=== PATIENT | male | born 1975 | race Caucasian/White ===

== ENCOUNTER 2024-01-26 19:20 | Inpatient (IN) | payer SELFPAY ==
[~2024-01-26] VITALS: Ht 182.8 cm; Wt 107.5 kg
[~2024-01-26 19:20] MED LIST: ALBUTEROL0.09 MG/A2 IH; BACTRIM DS 8001 TA1 PO; HYDROCODONE BIT1 T11 PO; KEFLEX500 MG PO; MOTRIN800 MG PO; NKHM; TOBRADEX 0.1%-0.5 ML OPH; TRAMADOL HCL50 MG PO; VIBRAMYCIN100 MG PO; VICODIN 5/500 505 MG PO
[2024-01-26 19:52] LABS: BASO # 0.1 10*3/uL (0.0-0.1); BASO % 0.6 % (0.0-1.0); EOS # 0.2 10*3/uL (0.0-0.4); EOS % 1.4 % (1.0-4.0); HEMATOCRIT 40.6 % (42.0-52.0); MEAN CELL VOLUME 96.2 fl (80.0-94.0); MEAN CORPUSCULAR HGB 29.6 pg (27.0-31.0); MEAN CORPUSCULAR HGB CONC 30.8 g/dl (33.0-37.0); MEAN PLATELET VOLUME 11.9 fl (9.6-12.3); MONO # 0.6 10*3/uL (0.1-1.0); MONO % 5.6 % (3.0-9.0); NEUT # 8.2 10*3/uL (2.3-7.9); NEUT % 72.9 % (47.0-73.0); PLATELET COUNT AUTOMATED 167 10*3/uL (130-400); RED BLOOD COUNT 4.22 10*6/uL (4.50-5.90); RED CELL DISTRI WIDTH 14.7 % (0-14.5); WHITE BLOOD COUNT 11.2 10*3/uL (4.8-10.8)
[2024-01-26 20:05] LABS: ACT PARTIAL THROMBO TIME 23.6 SECONDS (20.0-32.1)
[2024-01-26 20:13] LABS: BUN 18 mg/dl (9-23); CHLORIDE 109 mmol/L (98-107); LIPASE 58 U/L (12-53); POTASSIUM 4.5 mmol/L (3.4-5.1)
[2024-01-26] MEDS ORDERED: VAZALORE81 MG PO (20:25)
[2024-01-26] MEDS ORDERED: SODIUM CHLORIDE 0.9% 1,000 ML IV SCH (20:55)
[2024-01-26] MEDS ORDERED: AZITHROMYCIN 250 MG TAB PO ONE (20:55)
[2024-01-26] MEDS ORDERED: LORazepam 0.5 MG TAB PO ONE (20:55)
[2024-01-26] MEDS ORDERED: Ceftriaxone Sodium 1 GM/10 ML SYR IV ONE (20:55)
[2024-01-26] MEDS ORDERED: SODIUM CHLORIDE 0.9% 100 ML BAG IV ONE (21:55)
[2024-01-26] MEDS ORDERED: IOHEXOL 350 MG/ML 100 ML VIAL IV ONE ×2 (21:55→22:11)
[2024-01-26] MEDS ORDERED: SODIUM CHLORIDE 0.9% 100 ML IV ONE (22:12)
[2024-01-27] VITALS (8 sets, daily range): BP systolic 142–180; BP diastolic 88–135
[2024-01-27] MEDS ORDERED: ACETAMINOPHEN 325 MG TAB PO PRN (00:20)
[2024-01-27] MEDS ORDERED: Acetaminophen/Hydrocodone 5 MG/325 MG TABLET PO PRN (00:20)
[2024-01-27] MEDS ORDERED: MORPHINE Sulfate 2 MG/ML SYR IV PRN (00:20)
[2024-01-27] MEDS ORDERED: Ondansetron Hydrochloride 4 MG/2 ML VIAL IV PRN (00:20)
[2024-01-27] MEDS ORDERED: SODIUM CHLORIDE 0.9% 1,000 ML IV SCH (00:25)
[2024-01-27] MEDS ORDERED: Levalbuterol Hydrochloride 1.25 MG VIAL NEB PRN (00:30)
[2024-01-27] MEDS ORDERED: LORazepam 1 MG TAB PO ONE (00:30)
[2024-01-27] MEDS ORDERED: methylPREDNISolone sod succ 40 MG IV SCH (00:35)
[2024-01-27] MEDS ORDERED: methylPREDNISolone sod succ 40 MG VIAL IV SCH ×2 (00:35→18:00)
[2024-01-27] MEDS ORDERED: Nicotine 21 MG PATCH T SCH (00:40)
[2024-01-27] MEDS ORDERED: GUAIFENESIN 600 MG TAB ER PO SCH (00:45)
[2024-01-27] MEDS ORDERED: LORazepam 1 MG TAB PO PRN (01:10)
[2024-01-27] MEDS ORDERED: Metoprolol Tartrate 25 MG TAB PO SCH (02:10)
[2024-01-27] MEDS ORDERED: ASPIRIN, CHEWABLE 81 MG TAB PO SCH (02:10)
[2024-01-27] MEDS ORDERED: ATORVASTATIN CALCIUM 80 MG TAB PO SCH (02:10)
[2024-01-27 05:34] LABS: ALKALINE PHOSPHATASE 80 U/L (46-116); BUN 20 mg/dl (9-23); CHLORIDE 109 mmol/L (98-107); CHOLESTEROL 191 mg/dL (<200); LDL CHOLESTEROL 144 mg/dL (9-159); POTASSIUM 4.3 mmol/L (3.4-5.1); SGPT/ALT 308 U/L (5-49); TOTAL PROTEIN 6.5 gm/dL (6.0-8.0); TRIGLYCERIDES 102 mg/dl (<150)
[2024-01-27 06:21] LABS: BASO # 0.1 10*3/uL (0.0-0.1); BASO % 0.5 % (0.0-1.0); EOS # 0.1 10*3/uL (0.0-0.4); EOS % 0.5 % (1.0-4.0); HEMATOCRIT 41.3 % (42.0-52.0); MEAN CELL VOLUME 95.6 fl (80.0-94.0); MEAN CORPUSCULAR HGB 29.6 pg (27.0-31.0); MEAN PLATELET VOLUME 12.6 fl (9.6-12.3); MONO # 0.5 10*3/uL (0.1-1.0); MONO % 3.4 % (3.0-9.0); NEUT # 11.5 10*3/uL (2.3-7.9); NEUT % 86.8 % (47.0-73.0); PLATELET COUNT AUTOMATED 183 10*3/uL (130-400); RED BLOOD COUNT 4.32 10*6/uL (4.50-5.90); RED CELL DISTRI WIDTH 14.8 % (0-14.5); WHITE BLOOD COUNT 13.2 10*3/uL (4.8-10.8)
[2024-01-27 07:55] LABS: VITAMIN D, 25-HYDROXY 32.1 ng/mL (30-100)
[2024-01-27] MEDS ORDERED: Enoxaparin Sodium 40 MG/0.4 ML SYR SC SCH (10:00)
[2024-01-27] MEDS ORDERED: AZITHROMYCIN 250 MG TAB PO SCH (10:00)
[2024-01-27] MEDS ORDERED: FUROSEMIDE 20 MG/2 ML VIAL IV SCH ×2 (10:00→18:00)
[2024-01-27] MEDS ORDERED: Piperacillin Sodium/Tazobact 100 ML IV SCH (12:00)
[2024-01-27] MEDS ORDERED: hydrALAZINE hydrochloride 20 MG/ML VIAL IV PRN (13:40)
[2024-01-27] MEDS ORDERED: CARVEDILOL 12.5 MG TAB PO SCH (13:40)
[2024-01-27] MEDS ORDERED: VANCOMYCIN/WATER FOR INJ (PEG) 350 ML IV SCH (14:00)
[2024-01-27] MEDS ORDERED: Albuterol Sulfate 2.5 MG/3 ML VIAL NEB SCH (15:10)
[2024-01-27] MEDS ORDERED: HEPARIN SODIUM 250 ML IV SCH (15:45)
[2024-01-27 17:41] LABS: URINE AMPHETAMINES Negative (1000ng/ml); URINE BARBITURATES Negative (200ng/ml); URINE BENZODIAZEPINES Negative (200ng/ml); URINE CANNABINOIDS (THC) Negative (50ng/ml); URINE COCAINE Positive (300ng/ml); URINE METHADONE Negative (300ng/ml); URINE OPIATES Negative (300ng/ml); URINE PHENCYCLIDINE Negative (25ng/ml)
[2024-01-27] MEDS ORDERED: Ceftriaxone Sodium 1 GM in SYRINGE INFUSION 10 ML IV SCH (22:00)
[2024-01-28 03:54] VITALS: BP 146/95
[2024-01-28 04:48] LABS: BASO % 0.1 % (0.0-1.0); EOS # 0.1 10*3/uL (0.0-0.4); EOS % 0.5 % (1.0-4.0); HEMATOCRIT 37.7 % (42.0-52.0); MEAN CORPUSCULAR HGB 30.1 pg (27.0-31.0); MEAN CORPUSCULAR HGB CONC 33.2 g/dl (33.0-37.0); MEAN PLATELET VOLUME 12.6 fl (9.6-12.3); MONO # 0.9 10*3/uL (0.1-1.0); MONO % 4.4 % (3.0-9.0); NEUT # 17.7 10*3/uL (2.3-7.9); PLATELET COUNT AUTOMATED 186 10*3/uL (130-400); RED BLOOD COUNT 4.15 10*6/uL (4.50-5.90); RED CELL DISTRI WIDTH 14.4 % (0-14.5); WHITE BLOOD COUNT 19.9 10*3/uL (4.8-10.8)
[2024-01-28 04:53] LABS: MEAN CELL VOLUME 90.8 fl (80.0-94.0)
[2024-01-28] MEDS ORDERED: ATORVASTATIN CA80 M1 PO (04:58)
[2024-01-28] MEDS ORDERED: CARVEDILOL12.5 MG PO (05:00)
[2024-01-28] MEDS ORDERED: JARDIANCE10 MG PO (05:00)
[2024-01-28 05:05] LABS: ALKALINE PHOSPHATASE 70 U/L (46-116); BUN 21 mg/dl (9-23); CHLORIDE 105 mmol/L (98-107); POTASSIUM 3.9 mmol/L (3.4-5.1); SGPT/ALT 229 U/L (5-49); TOTAL PROTEIN 6.1 gm/dL (6.0-8.0)
[2024-01-28] MEDS ORDERED: EMPAGLIFLOZIN 10 MG TABLET PO SCH (10:00)
== END 2024-01-28 04:29 | disposition short-term general hospital (02) | DRG 871 ==
LOC: ED 19:20 → EDHOLD 23:51
PROVIDERS: Internal Medicine; Internal Medicine Critical Care Medicine; Student in an Organized Health Care Education/Training Program; ADMIT Student in an Organized Health Care Education/Training Program; ATTEND Student in an Organized Health Care Education/Training Program
DX: A41.9 Sepsis, unspecified organism (principal); I21.4 Non-ST elevation (NSTEMI) myocardial infarction; J69.0 Pneumonitis due to inhalation of food and vomit; I50.21 Acute systolic (congestive) heart failure; J90 Pleural effusion, not elsewhere classified; R04.2 Hemoptysis; D68.51 Activated protein C resistance; R65.20 Severe sepsis without septic shock; K81.9 Cholecystitis, unspecified; D53.9 Nutritional anemia, unspecified; F41.1 Generalized anxiety disorder; F17.210 Nicotine dependence, cigarettes, uncomplicated; F32.9 Major depressive disorder, single episode, unspecified; I27.20 Pulmonary hypertension, unspecified; F14.10 Cocaine abuse, uncomplicated; T40.5X5A Adverse effect of cocaine, initial encounter; I08.1 Rheumatic disorders of both mitral and tricuspid valves; R59.0 Localized enlarged lymph nodes; R73.9 Hyperglycemia, unspecified; Z71.6 Tobacco abuse counseling; Z82.5 Family history of asthma and other chronic lower respiratory diseases; Z79.2 Long term (current) use of antibiotics; Y92.89 Other specified places as the place of occurrence of the external cause

== ENCOUNTER 2024-07-31 13:19 | Emergency (ER) | payer OTHER ==
[~2024-07-31] VITALS: Ht 182.8 cm; Wt 97.1 kg
[~2024-07-31 13:19] MED LIST changes: +ALDACTONE25 MG PO; +ATORVASTATIN CA80 M1 PO; +CARVEDILOL12.5 MG PO; +CHEST CONGESTI400 MG PO; +DOXYCYCLINE HY100 M3 PO; +ENTRESTO 24 MG1 EACH PO; +ENTRESTO 49 MG1 EACH PO; +JARDIANCE10 MG PO; +LASIX40 MG PO; +LIPITOR40 MG PO; +MUCUS RELIEF E600 MG PO; +VAZALORE81 MG PO
[2024-07-31 14:15] LABS: POTASSIUM 4.1 mmol/L (3.4-5.1); TOTAL PROTEIN 7.3 gm/dL (6.0-8.0)
[2024-07-31 14:19] LABS: ACT PARTIAL THROMBO TIME 22.2 SECONDS (20.0-32.1)
[2024-07-31] MEDS ORDERED: RECOMBINANT IV ONE ×2 (14:20)
[2024-07-31] MEDS ORDERED: INFUSION IV ONE ×2 (14:20)
[2024-07-31] MEDS ORDERED: ALTEPLASE IV ONE ×2 (14:20)
[2024-07-31 14:22] LABS: MEAN CELL VOLUME 92.2 fl (80.0-94.0); MEAN CORPUSCULAR HGB 29.2 pg (27.0-31.0); MEAN CORPUSCULAR HGB CONC 31.7 g/dl (33.0-37.0); MEAN PLATELET VOLUME 13.5 fl (9.6-12.3); NUCLEATED RED BLOOD CELL 0.1 % (0.0-0.0); RED CELL DISTRI WIDTH 19.9 % (0-14.5); WHITE BLOOD COUNT 14.4 10*3/uL (4.8-10.8)
[2024-07-31 14:25] LABS: MANUAL DIFF REFLEX YES; PLATELET COUNT AUTOMATED 199 10*3/uL (130-400)
[2024-07-31 14:35] LABS: TOTAL CELLS COUNTED 100 #CELLS
[2024-07-31 14:37] LABS: PLATELET SUFFICIENCY NORMAL (NORMAL); POLYCHROMASIA SLIGHT
[2024-07-31] MEDS ORDERED: MORPHINE Sulfate 2 MG/ML SYR IV ONE (14:50)
[2024-07-31 15:36] LABS: BILIRUBIN Negative (Negative); BLOOD Negative (Negative); CLARITY Clear (Clear); COLOR Yellow (Yellow); GLUCOSE 3+ (Negative); KETONE Negative (Negative); LEUKO ESTERASE Negative (Negative); NITRITE Negative (Negative); PH 5.5 (4.5-8.0); SPECIFIC GRAVITY 1.015 (1.001-1.030)
[2024-07-31] MEDS ORDERED: SODIUM CHLORIDE 0.9% 100 ML BAG IV ONE (15:40)
[2024-07-31] MEDS ORDERED: Iodixanol 320 100 ML VIAL IV ONE (15:40)
[2024-07-31 15:43] LABS: URINE AMPHETAMINES Negative (1000ng/ml); URINE BARBITURATES Negative (200ng/ml); URINE BENZODIAZEPINES Negative (200ng/ml); URINE CANNABINOIDS (THC) Negative (50ng/ml); URINE COCAINE Positive (300ng/ml); URINE METHADONE Negative (300ng/ml); URINE OPIATES Negative (300ng/ml); URINE PHENCYCLIDINE Negative (25ng/ml)
[2024-07-31 15:51] LABS: RBC 0-2 rbc/hpf (0-2); WBC 0-2 wbc/hpf (0-5)
== END 2024-07-31 19:20 | disposition short-term general hospital (02) ==
LOC: ED 13:19
PROVIDERS: Internal Medicine
DX: I63.411 Cerebral infarction due to embolism of right middle cerebral artery (principal); F10.10 Alcohol abuse, uncomplicated; F17.200 Nicotine dependence, unspecified, uncomplicated; Z79.899 Other long term (current) drug therapy; Z91.018 Allergy to other foods; Z88.8 Allergy status to other drugs, medicaments and biological substances; Z98.890 Other specified postprocedural states; Z95.0 Presence of cardiac pacemaker; Y90.9 Presence of alcohol in blood, level not specified